=== PATIENT | female | born 1980 | race Caucasian/White ===

== ENCOUNTER → 2016-08-11 | Outpatient (CLI) | payer MEDICAID ==
[2016-08-11 11:54] LABS: BASOPHILS % (AUTO) 1 % (0-2); EOSINOPHILS % (AUTO) 0 % (0-4); LYMPHOCYTES # (AUTO) 1.6 X10^3; MEAN CORPUSCULAR HGB CONC 33.1 g/dL (31.0-37.0); MEAN PLATELET VOLUME 9.4 FL (6.0-9.5); MONOCYTES # (AUTO) 0.3 X10^3; MONOCYTES % (AUTO) 5 % (3-11); NEUTROPHILS # (AUTO) 3.3 X10^3; NEUTROPHILS % (AUTO) 63 % (51-67); PLATELET COUNT 254 10^3uL (150-450); WHITE BLOOD COUNT 5.23 10^3uL (4.0-11.0)
[2016-08-11 11:56] LABS: MEAN CORPUSCULAR HEMOGLOBIN 33.3 PG (26.0-34.0); MEAN CORPUSCULAR VOLUME 101 FL (80-100)
[2016-08-11 12:12] LABS: ALBUMIN 4.3 g/dL (3.4-5.0); ANION GAP 14.1 MEQ/L (3-15); TOTAL PROTEIN 7.5 g/dL (6.4-8.5)
== END ==
LOC: LAB 11:38
PROVIDERS: ATTEND Obstetrics & Gynecology
DX: N92.1 Excessive and frequent menstruation with irregular cycle (principal)
CPT/HCPCS: 36415; 80053; 85025; 86850; 86900; 86901